=== PATIENT | female | born 1970 | race Caucasian/White ===

== ENCOUNTER 2017-08-13 21:10 | Emergency (ER) | payer BC, OTHER ==
[~2017-08-13] VITALS: Ht 177.8 cm; Wt 55.0 kg
[2017-08-13 21:12] VITALS: TEMP 36.6; Ht 177.8 cm; Wt 55.0 kg
[2017-08-13] MEDS ORDERED: LAMO25TA PO (21:39)
[2017-08-13] MEDS ORDERED: ACET-1256 PO (21:39)
[2017-08-13] MEDS ORDERED: LEVO75CA2 PO (21:39)
[2017-08-13] MEDS ORDERED: DIAZ-165 PO (21:39)
[2017-08-13] MEDS ORDERED: SODIUM CHLORIDE 0.9% 1000ML 1,000 ML IV STA ×2 (21:47)
[2017-08-13] MEDS ORDERED: PROMETHAZINE HCL INJ 25 MG in SODIUM CHLORIDE 0.9% 50ML 50 ML IV STA (21:47)
[2017-08-13] MEDS ORDERED: DiphenhydrAMINE HCL 50 MG/ML VIAL IV STA (21:47)
[2017-08-13] MEDS ORDERED: OPTIRAY 320 IV PRN (22:00)
[2017-08-13] MEDS ORDERED: DICYCLOMINE HCL 10 MG/ML 2 ML AMP IM ONE (22:15)
[2017-08-13 22:20] LABS: COMPLETE YES; HEMATOCRIT 47.8 % (37-47); IG% 0.3 %; LYMPH % 3.8 %; LYMPH ABS # 0.22 K/uL (1.2-3.4); MEAN CORPUSCULAR HEMOGLOBIN 31.1 pg (25-34); MEAN CORPUSCULAR HGB CONC 34.9 g/dl (32-36); MEAN PLATELET VOLUME 10.4 fL (7.4-10.4); MONO % 3.9 %; PLATELET COUNT 220 K/uL (130-400); RED BLOOD COUNT 5.37 M/uL (4.2-5.4); WHITE BLOOD COUNT 5.84 K/uL (4.8-10.8)
[2017-08-13] MEDS ORDERED: ONDANSETRON 8 MG/54 ML D5W IV STA (22:34)
[2017-08-13] MEDS ORDERED: LORAZEPAM 2 MG/ML 1 ML VIAL IV STA (22:35)
[2017-08-13] MEDS ORDERED: SODIUM CHLORIDE 0.9% 500ML 500 ML IV STA (22:56)
[2017-08-13 23:12] LABS: URINE APPEARANCE TURBID (CLEAR); URINE COLOR ORANGE; URINE EPITHELIAL CELL AUTO >30 /lpf (0-5); URINE NITRITE NEG (NEG); URINE SPECIFIC GRAVITY 1.034 (1.000-1.030); UROBILINOGEN NEG (NEG); ZZUR CULT IF INDIC CLEAN CATCH YES
[2017-08-13 23:16] LABS: BUN/CREATININE RATIO 14.7 (10-20); CREATININE 1.1 mg/dl (0.60-1.20); POTASSIUM 3.9 mmol/L (3.5-5.1)
[2017-08-13] MEDS ORDERED: KETOROLAC TROMETHAMINE 15 MG/ML VIAL IV STA (23:28)
[2017-08-13 23:32] LABS: MANUAL MICROSCOPIC REQUIRED? NO; REVIEW REQ? YES; URINE BILIRUBIN NEG (NEG)
[2017-08-13 23:34] LABS: PREG INTERNAL NEGATIVE QC NEG CLEAR BACKGROUND; PREG INTERNAL POSITIVE QC POS CONTROL LINE
--- NOTE | 2017-08-14 00:52 | EMERGENCY ROOM VISIT NOTE ---
History Report prepared by Martin: Mary Crouch Under the Supervision of: Dr. Femi Fernández M.D. First contact with patient: 21:45 Chief Complaint: ABDOMINAL PAIN Stated Complaint: ALLERGIC REACTION Nursing Triage Summary: pt ambulated to room yelling at mother , reports abdominal pain that started this AM after eating soup. Pt then says I think the pain started after eating old pizza at home later in the afternoon. pt then states pain started in abdomen while out to dinner this evening at around 1915. pt reports NV History of Present Illness The patient is a 47 year old female who presents to the Emergency Room with complaints of persistent abdominal pain that started around 1914 this evening. She reports she was out to dinner with friends when she "ran to the bathroom and vomited everywhere". She still feels nauseous here in the ED and believes she vomited 4 times over the past 2 hours. She has not had any diarrhea and states she feels constipated. She does admit to feeling dehydrated. The patient denies any recent ETOH or illegal drug use. She admits to a history of depression and anxiety and states she last took Valium yesterday for her flight to [place], as she is from [place], [place]. The patient denies any LOC, headache, fevers, chills, diaphoresis, visual changes, neck pain, chest pain, breathing difficulties, back pain, melena, hematochezia, urinary symptoms, numbness, weakness, lymphadenopathy, rash, or other complaints. Source of History: patient Onset: 1914 this evening Position: abdomen Timing: other (persistent) Associated Symptoms: + nausea, + vomiting Review of Systems See HPI for pertinent positives and negatives. A total of ten systems were reviewed and were otherwise negative. Past Medical & Surgical Medical Problems: (1) Anxiety (2) Depression (3) Hypothyroidism Surgical Problems: (1) History of tonsillectomy (2) S/P tonsillectomy Social History Smoking Status: Current Every Day Smoker Current/Historical Medications Scheduled Acetaminophen (Tylenol), 1,000 MG PO PRN UD Diazepam (Valium), 5 MG PO PRN UD Lamotrigine (Lamictal), 25 MG PO DAILY Levothyroxine Sodium (Tirosint), 75 MCG PO DAILY Allergies Coded Allergies: Penicillins (Verified Allergy, Unknown, UNKNOWN, 08/13/17) Sulfa Antibiotics (Verified Allergy, Unknown, UNKNOWN, 08/13/17) Physical Exam Vital Signs Date Time Temp Pulse Resp B/P (MAP) Pulse Ox O2 Delivery O2 Flow Rate FiO2 08/14/17 05:42 96 20 113/62 96 08/14/17 04:24 95 20 114/68 95 Room Air 08/14/17 02:52 89 16 116/68 96 Room Air 08/14/17 01:27 89 20 119/85 95 Room Air 08/14/17 00:04 95 20 135/89 96 Room Air 08/13/17 23:38 101 16 133/40 98 Room Air 08/13/17 22:45 95 20 99/80 100 Room Air 08/13/17 21:12 36.6 104 20 127/68 98 Room Air Physical Exam GENERAL: Awake, alert, anxious and uncomfortable-appearing, in no distress HENT: Normocephalic, atraumatic. Oropharynx unremarkable. EYES: Normal conjunctiva. Sclera non-icteric. NECK: Supple. No nuchal rigidity. FROM. No JVD. RESPIRATORY: Clear to auscultation. CARDIAC: Regular rate, normal rhythm. Extremities warm and well perfused. Pulses equal. ABDOMEN: Soft, non-distended. Diffuse tenderness to palpation. No rebound or guarding. No masses. RECTAL: Deferred. MUSCULOSKELETAL: Chest examination reveals no tenderness. The back is symmetrical on inspection without obvious abnormality. There is no CVA tenderness to palpation. No joint edema. LOWER EXTREMITIES: Calves are equal size bilaterally and non-tender. No edema. No discoloration. NEURO: Normal sensorium. No sensory or motor deficits noted. SKIN: No rash or jaundice noted. Medical Decision & Procedures ER Provider Diagnostic Interpretation: CT scan of the abdomen and pelvis reveals a possible enteritis. Questionable colitis. No clear evidence of appendicitis. Prior hysterectomy. Gallbladder sludge versus polyp. Laboratory Results 08/13/17 22:10 Red Blood Count 5.37, Mean Corpuscular Volume 89.0, Mean Corpuscular Hemoglobin 31.1, Mean Corpuscular Hemoglobin Concent 34.9, Mean Platelet Volume 10.4, Neutrophils (%) (Auto) 91.0, Lymphocytes (%) (Auto) 3.8, Monocytes (%) (Auto) 3.9, Eosinophils (%) (Auto) 1.0, Basophils (%) (Auto) 0.0, Neutrophils # (Auto) 5.31, Lymphocytes # (Auto) 0.22, Monocytes # (Auto) 0.23, Eosinophils # (Auto) 0.06, Basophils # (Auto) 0.00 08/14/17 04:28 Test 08/13/17 21:30 08/13/17 22:10 08/14/17 04:28 Urine Color ORANGE Urine Appearance TURBID (CLEAR) Urine pH 5.0 (4.5-7.5) Urine Specific [place] 1.034 (1.000-1.030) Urine Protein NEG (NEG) Urine Glucose (UA) NEG (NEG) Urine Ketones TRACE (NEG) Urine Occult Blood NEG (NEG) Urine Nitrite NEG (NEG) Urine Bilirubin NEG (NEG) Urine Urobilinogen NEG (NEG) Urine Leukocyte Esterase TRACE (NEG) Urine WBC (Auto) 5-10 /hpf (0-5) Urine RBC (Auto) 0-4 /hpf (0-4) Urine Hyaline Casts (Auto) 0 /lpf (0-5) Urine Epithelial Cells (Auto) >30 /lpf (0-5) Urine Bacteria (Auto) 1+ (NEG) Urine Crystals AMORPHOUS SEDIMENT (NONE Urine Pathogenic Casts /lpf (0) White Blood Count 5.84 K/uL (4.8-10.8) Red Blood Count 5.37 M/uL (4.2-5.4) Hemoglobin 16.7 g/dL (12.0-16.0) Hematocrit 47.8 % (37-47) Mean Corpuscular Volume 89.0 fL (80-100) Mean Corpuscular Hemoglobin 31.1 pg (25-34) Mean Corpuscular Hemoglobin Concent 34.9 g/dl (32-36) Platelet Count 220 K/uL (130-400) Mean Platelet Volume 10.4 fL (7.4-10.4) Neutrophils (%) (Auto) 91.0 % Lymphocytes (%) (Auto) 3.8 % Monocytes (%) (Auto) 3.9 % Eosinophils (%) (Auto) 1.0 % Basophils (%) (Auto) 0.0 % Neutrophils # (Auto) 5.31 K/uL (1.4-6.5) Lymphocytes # (Auto) 0.22 K/uL (1.2-3.4) Monocytes # (Auto) 0.23 K/uL (0.11-0.59) Eosinophils # (Auto) 0.06 K/uL (0-0.5) Basophils # (Auto) 0.00 K/uL (0-0.2) RDW Standard Deviation 46.3 fL (36.4-46.3) RDW Coefficient of Variation 14.2 % (11.5-14.5) Immature Granulocyte % (Auto) 0.3 % Immature Granulocyte # (Auto) 0.02 K/uL (0.00-0.02) Total Bilirubin 0.7 mg/dl (0.2-1) Direct Bilirubin 0.1 mg/dl (0-0.2) Aspartate Amino Transf (AST/SGOT) 16 U/L (15-37) Alanine Aminotransferase (ALT/SGPT) 30 U/L (12-78) Alkaline Phosphatase 97 U/L (45-117) Total Protein 7.6 gm/dl (6.4-8.2) Albumin 4.3 gm/dl (3.4-5.0) Lipase 203 U/L (73-393) Human Chorionic Gonadotropin, Qual NEG (NEG) Anion Gap 6.0 mmol/L (3-11) Est Creatinine Clear Calc Drug Dose 59.7 ml/min Estimated GFR () 77.2 Estimated GFR (Non- 66.6 BUN/Creatinine Ratio 13.7 (10-20) Calcium Level 7.5 mg/dl (8.5-10.1) Laboratory results reviewed by me Medications Administered Medications (Trade) Dose Ordered Sig/Debo Route Start Time Stop Time Status Last Admin Dose Admin Sodium Chloride 1,000 ml @ 125 mls/hr Q8H STAT IV 08/13/17 21:47 08/14/17 05:46 DC 08/13/17 21:47 125 MLS/HR Sodium Chloride 1,000 ml @ 999 mls/hr Q1H1M STAT IV 08/13/17 21:47 08/13/17 22:47 DC 08/13/17 22:09 999 MLS/HR Promethazine HCl 25 mg/Sodium Chloride 51 ml @ 204 mls/hr NOW STAT IV 08/13/17 21:47 08/13/17 22:01 DC 08/13/17 22:18 204 MLS/HR Diphenhydramine HCl (Benadryl Inj) 25 mg NOW STAT IV 08/13/17 21:47 08/13/17 21:51 DC 08/13/17 22:07 25 MG Dicyclomine HCl (Bentyl Inj) 20 mg NOW ONCE IM 08/13/17 22:15 08/13/17 22:16 DC 08/13/17 22:21 20 MG Ondansetron HCl (Zofran 8mg Iv) 8 mg NOW STAT IV 08/13/17 22:34 08/13/17 22:35 DC 08/13/17 22:44 8 MG Lorazepam (Ativan Inj) 1 mg NOW STAT IV 08/13/17 22:35 08/13/17 22:37 DC 08/13/17 22:44 1 MG Sodium Chloride 500 ml @ 999 mls/hr Q31M STAT IV 08/13/17 22:56 08/13/17 23:26 DC 08/13/17 23:04 999 MLS/HR Ketorolac Tromethamine (Toradol Inj) 15 mg NOW STAT IV 08/13/17 23:28 08/13/17 23:29 DC 08/14/17 00:00 15 MG Potassium Chloride/Dextrose/ Sod Cl 500 ml @ 500 mls/hr Q1H ONCE IV 08/14/17 03:00 08/14/17 03:59 DC 08/14/17 02:52 500 MLS/HR Potassium Chloride/Dextrose/ Sod Cl 250 ml @ 250 mls/hr Q1H IV 08/14/17 02:15 08/14/17 03:01 DC 08/14/17 02:47 250 MLS/HR Potassium Chloride/Dextrose/ Sod Cl 1,000 ml @ 250 mls/hr Q4H IV 08/14/17 05:00 08/14/17 06:13 DC 08/14/17 03:58 250 MLS/HR Ondansetron HCl (ZOFRAN ODT 4MG Home Pack) 1 homepack UD ONCE PO 08/14/17 05:30 08/14/17 05:31 DC 08/14/17 05:35 1 HOMEPACK ED Course 2145: The patient was evaluated in room A10. A complete history and physical exam was performed. 2146: Promethazine HCl 25 mg/NSS 51 ml @ 204 mls/hr IV, NSS 1000 ml @ 999 mls/ hr IV, NSS 1000 ml @ 125 mls/hr IV. 2215: Bentyl 20 mg IM. 2230: Nursing informed me the patient would like more medication for nausea. 2234: Zofran 8 mg IV. 2235: Lorazepam 1 mg IV. 2256: NSS 500 ml @ 999 mls/hr IV. 2325: Patient was reassessed. She is feeling better. Her nausea is improved. She still notes some abdominal discomfort. 2328: Toradol 15mg IV ordered. 0015: Patient is reassessed she is resting more comfortably. She still notes crampy abdominal discomfort. She has a dry mouth. CT read pending. 0030: Patient reassessed. CT reveals an enteritis. Patient does not feel well enough to return to her friend's home his friend raises concerns about her being able to manage her symptoms as an outpatient. 0045: I discussed the case with of internal medicine. He will evaluate the patient. Medical Decision Triage Nursing notes reviewed and agree them. Additional history obtained from the patient's friend. The patient's history was concerning for nausea, vomiting, and abdominal pain. Differential diagnosis: Etiologies such as gastroenteritis, food borne illness, infections, appendicitis , diverticulitis, inflammatory bowel disease, GI bleed, biliary pathology, as well as others were entertained. Physical examination findings: As above. The patient was anxious. The patient had generalized pain. ER treatment provided: IV hydration 1 L NSS. Benadryl 25 mg IV Phenergan 25 mg IV On reassessment the patient was still having discomfort Bentyl 20 mg IM Reassessment the patient felt somewhat better but still had more nausea and vomited. She also episode of diarrhea. Zofran 8 mg IV Ativan 1 mg IV On reassessment the patient felt somewhat better. Normal saline 500 ml bolus Toradol 15 mg IV Diagnostics interpretation by me: The labs revealed an unremarkable cc, chemistry panel, LFTs, lipase, and urinalysis. Imaging studies: CT scan as above The patient was reevaluated. She has an enteritis. Her symptoms are better controlled but still present. She is visiting from out of town. The place that she is currently staying as she is currently staying with friends. They raised concerns about her being able to manage her symptoms out of the hospital. Consultation: A consultation was placed with the hospitalist. The case was discussed and diagnostics were reviewed. The patient was evaluated in the ER for further treatment. [place] Drug Monitoring Program Search Results: patient reviewed within database, no issues identified Medication Reconcilliation Current Medication List: was personally reviewed by me Blood Pressure Screening Patient's blood pressure: Normal blood pressure Blood pressure disposition: Did not require urgent referral Consults Time Called: 34 Consulting Physician: Dr. Duque Returned Call: 0040: Discussed the patient's concerns about being treated as an outpatient. He will evaluate the patient in the Emergency Room. Impression Primary Impression: Nausea vomiting and diarrhea Additional Impressions: Generalized abdominal pain Enteritis Scribe Attestation The scribe's documentation has been prepared under my direction and personally reviewed by me in its entirety. I confirm that the note above accurately reflects all work, treatment, procedures, and medical decision making performed by me. Departure Information Dispostion Being Evaluated By Hospitalist Referrals No Doctor, Assigned (PCP) Patient Instructions My [facility] Problem Qualifiers
[2017-08-14] MEDS ORDERED: D5NSS + 20MEQ KCL 1,000 ML IV SCH ×2 (02:15→05:00)
--- NOTE | 2017-08-14 02:25 | History and Physical ---
History & Physical Date & Time of Service: Aug 14, 2017 at 02:13 Chief Complaint: Allergic Reaction Primary Care Physician: No Doctor, Assigned History of Present Illness Source: patient 47 y/o F Hx hypothyroidism. Pt is visiting for football game. She states she ate 2 slices of pizza that had been in the car for a few hours. She developed nausea/vomiting and diarrhea a few hours later. She was treated with antiemetics in the ER for a few hours. Past Medical/Surgical History 1) Hypothyroidism Surgical B/L breast implants Hysterectomy Family History Noncontributory Social History States she smoked and drinks socially Per nursing, the pts mother sated that she abuses drugs but did not provide specifics. We could not confirm this. The pt denies drug use. Smoking Status: Current Every Day Smoker Allergies Coded Allergies: Penicillins (Verified Allergy, Unknown, UNKNOWN, 08/13/17) Sulfa Antibiotics (Verified Allergy, Unknown, UNKNOWN, 08/13/17) Home Medications Scheduled Acetaminophen (Tylenol), 1,000 MG PO PRN UD Diazepam (Valium), 5 MG PO PRN UD Lamotrigine (Lamictal), 25 MG PO DAILY Levothyroxine Sodium (Tirosint), 75 MCG PO DAILY Review of Systems Constitutional: No fever, No chills, No sweats Eyes: No worsening of vision ENT: No hearing loss, No unusual epistaxis, No nasal symptoms Respiratory: No cough, No sputum, No wheezing Cardiovascular: No chest pain, No orthopnea, No PND Abdomen: + nausea, + vomiting, + diarrhea, No pain Musculoskeletal: No joint pain Genitourinary - Female: No dysuria, No urinary frequency Neurologic: No memory loss, No paralysis, No weakness Psychiatric: No depression symptoms Endocrine: No fatigue Hematologic / Lymphatic: No abnormal bleeding/bruising Integumentary: No rash Allergic / Immunologic: No environmental allergies Physical Exam Vital Signs Date Time Temp Pulse Resp B/P (MAP) Pulse Ox O2 Delivery O2 Flow Rate FiO2 08/14/17 01:27 89 20 119/85 95 Room Air 08/14/17 00:04 95 20 135/89 96 Room Air 08/13/17 23:38 101 16 133/40 98 Room Air 08/13/17 22:45 95 20 99/80 100 Room Air 08/13/17 21:12 36.6 104 20 127/68 98 Room Air General Appearance: no apparent distress, + pertinent finding (Thin middle aged female - appears uncomfortable - no distress) Head: normocephalic Eyes: normal inspection ENT: normal ENT inspection, hearing grossly normal Neck: supple, no JVD Respiratory/Chest: chest non-tender, lungs clear, normal breath sounds Cardiovascular: regular rate, rhythm, no edema, no gallop Abdomen/GI: normal bowel sounds, non tender, soft Back: normal inspection, no CVA tenderness Extremities/Musculoskelatal: normal inspection, no calf tenderness, normal capillary refill, no pedal edema, normal range of motion Neurologic/Psych: cmm inspector II-XII nml as tested, no motor/sensory deficits, alert, oriented x 3 Skin: normal color, warm/dry Diagnostics Laboratory Results Results Past 24 Hours Test 08/13/17 21:30 08/13/17 22:10 Range/Units Urine Color ORANGE Urine Appearance TURBID CLEAR Urine pH 5.0 4.5-7.5 Urine Specific [place] 1.034 1.000-1.030 Urine Protein NEG NEG Urine Glucose (UA) NEG NEG Urine Ketones TRACE NEG Urine Occult Blood NEG NEG Urine Nitrite NEG NEG Urine Bilirubin NEG NEG Urine Urobilinogen NEG NEG Urine Leukocyte Esterase TRACE NEG Urine WBC (Auto) 5-10 0-5 /hpf Urine RBC (Auto) 0-4 0-4 /hpf Urine Hyaline Casts (Auto) 0 0-5 /lpf Urine Epithelial Cells (Auto) >30 0-5 /lpf Urine Bacteria (Auto) 1+ NEG Urine Crystals AMORPHOUS SEDIMENT NONE PRSENT Urine Pathogenic Casts 0 /lpf White Blood Count 5.84 4.8-10.8 K/uL Red Blood Count 5.37 4.2-5.4 M/uL Hemoglobin 16.7 12.0-16.0 g/dL Hematocrit 47.8 37-47 % Mean Corpuscular Volume 89.0 80-100 fL Mean Corpuscular Hemoglobin 31.1 25-34 pg Mean Corpuscular Hemoglobin Concent 34.9 32-36 g/dl Platelet Count 220 130-400 K/uL Mean Platelet Volume 10.4 7.4-10.4 fL Neutrophils (%) (Auto) 91.0 % Lymphocytes (%) (Auto) 3.8 % Monocytes (%) (Auto) 3.9 % Eosinophils (%) (Auto) 1.0 % Basophils (%) (Auto) 0.0 % Neutrophils # (Auto) 5.31 1.4-6.5 K/uL Lymphocytes # (Auto) 0.22 1.2-3.4 K/uL Monocytes # (Auto) 0.23 0.11-0.59 K/uL Eosinophils # (Auto) 0.06 0-0.5 K/uL Basophils # (Auto) 0.00 0-0.2 K/uL RDW Standard Deviation 46.3 36.4-46.3 fL RDW Coefficient of Variation 14.2 11.5-14.5 % Immature Granulocyte % (Auto) 0.3 % Immature Granulocyte # (Auto) 0.02 0.00-0.02 K/uL Sodium Level 144 136-145 mmol/L Potassium Level 3.9 3.5-5.1 mmol/L Chloride Level 107 98-107 mmol/L Carbon Dioxide Level 29 21-32 mmol/L Anion Gap 8.0 3-11 mmol/L Blood Urea Nitrogen 16 7-18 mg/dl Creatinine 1.10 0.60-1.20 mg/dl Est Creatinine Clear Calc Drug Dose 54.3 ml/min Estimated GFR () 68.8 Estimated GFR (Non- 59.3 BUN/Creatinine Ratio 14.7 10-20 Random Glucose 101 70-99 mg/dl Calcium Level 9.0 8.5-10.1 mg/dl Total Bilirubin 0.7 0.2-1 mg/dl Direct Bilirubin 0.1 0-0.2 mg/dl Aspartate Amino Transf (AST/SGOT) 16 15-37 U/L Alanine Aminotransferase (ALT/SGPT) 30 12-78 U/L Alkaline Phosphatase 97 45-117 U/L Total Protein 7.6 6.4-8.2 gm/dl Albumin 4.3 3.4-5.0 gm/dl Lipase 203 73-393 U/L Human Chorionic Gonadotropin, Qual NEG NEG Microbiology Results 08/13/17 Urine Culture, Received Pending Diagnostic Radiology CT abdomen - no obstruction - possible colitis - possible enteritis Impression Assessment and Plan 47 y/o F Hx hypothyroidism. Pt is visiting for football game. She states she ate 2 slices of pizza that had been in the car for a few hours. She developed nausea/vomiting and diarrhea a few hours later. She was provided with antiemetics, IVF and monitored in the ER for a few hours. 1) Nausea, vomiting, diarrhea - Pt improved in the ER with antiemetics and fluids - discharge home has been recommended following redraw of her electrolytes confirming no abnormalities. Would recommend Rx for sublingual Zofran. 2) Hypothyroidism - cont Synthroid Please note that the above is a consult Total time for this ER outpt consult including review of labs, imaging - discussion with pt and ER attending - 33 min Level of Care Med/Surg Resuscitation Status FULL RESUSCITATION VTE Prophylaxis Given or contraindicated: SCD's
[2017-08-14] MEDS ORDERED: D5NSS + 20MEQ KCL 1,000 ML IV ONE (03:00)
[2017-08-14 05:14] LABS: BUN/CREATININE RATIO 13.7 (10-20); POTASSIUM 3.7 mmol/L (3.5-5.1)
[2017-08-14] MEDS ORDERED: ONDANSETRON HOME PACK 4MG OD TAB PO ONE (05:30)
[2017-08-14 05:32] LABS: CALCIUM 7.5 mg/dl (8.5-10.1)
[2017-08-14 05:42] VITALS: BP 113/62; PULSE 96; O2SAT 96
--- NOTE | 2017-08-14 07:37 | DIAGNOSTIC IMAGING REPORT ---
CT ABD/PELVIS IV CONTRAST ONLY CLINICAL HISTORY: Vomiting, upper abdominal pain COMPARISON STUDY: None. TECHNIQUE: Following the IV administration of 94 mL of Optiray-320, CT scan of the abdomen and pelvis was performed from the lung bases to the proximal femurs. Images are reviewed in the axial, sagittal, and coronal planes. IV contrast was administered without complication. A dose lowering technique was utilized adhering to the principles of ALARA. CT DOSE: 340.50 mGy.cm FINDINGS: Lower chest: There are bilateral breast implants. There are minimal dependent atelectatic changes. Liver: There is mild focal fat at the level of the falciform ligament. No focal hepatic masses are visualized area the portal vein appears patent. Gallbladder: Cholelithiasis versus gallbladder polyp. Spleen: Normal in size and attenuation. Pancreas: Unremarkable. Adrenal glands: Unremarkable. Kidneys: There is symmetric renal cortical enhancement. The kidneys are normal in size without hydronephrosis. Bowel: There are no transition zones indicate bowel obstruction. There is no acute diverticulitis. Evaluation the bowel is limited due to the lack of oral contrast and the motion artifact. The appendix is not visualized with certainty. There are multiple fluid-filled nondilated small bowel loops. There is equivocal cecal wall thickening. This could indicate an enteritis. Peritoneum: There is no intraperitoneal free air or abdominal ascites. Vasculature: The abdominal aorta is normal in course and caliber. Adenopathy: None. Pelvic viscera: The uterus is surgically absent Skeletal structures: No destructive osseous lesions are seen. IMPRESSION: 1. Examination limited due to lack of orally administered contrast and mild motion artifact 2. No evidence of bowel obstruction. No evidence of free air 3. Nonvisualization of the appendix, but no convincing evidence of acute appendicitis 4. Suggestion of mild cecal wall thickening with minimal indistinctness in the surrounding fat. This could indicate a colitis. 5. Small gallstone versus polyp. Electronically signed by: John Orourke M.D. 08/14/2017 7:35 AM Dictated Date/Time: 08/14/2017 7:29 AM
--- NOTE | 2017-08-14 08:28 | EMERGENCY ROOM VISIT NOTE ---
ED Visit Note During busy ED time I was asked by Hospitalist service to place discharge orders for this patient. She has been in department for 8+ hours due to gastroenteritis. Hospitalist request discharge by ED physician and home with JOHAN Duarte. I have obliged them in doing so after discussing with patient who notes she is no longer vomiting and is feeling better. She has no further complaints for me.
== END 2017-08-14 05:43 | disposition home or self-care (01) ==
LOC: C.EDB 21:12 → C.EDA 08-14 05:43
DX: R11.2 Nausea with vomiting, unspecified (principal); R10.84 Generalized abdominal pain; K52.9 Noninfective gastroenteritis and colitis, unspecified; E03.9 Hypothyroidism, unspecified; F17.200 Nicotine dependence, unspecified, uncomplicated; Z90.710 Acquired absence of both cervix and uterus; Z98.82 Breast implant status; Z90.89 Acquired absence of other organs; Z79.899 Other long term (current) drug therapy